=== PATIENT | female | born 1970 | race Caucasian/White ===

== ENCOUNTER 2020-05-04 16:15 | Emergency (ER) | payer OTHER ==
[~2020-05-04] VITALS: Ht 162.6 cm; Wt 78.5 kg
[2020-05-04 16:22] VITALS: Ht 162.6 cm; Wt 78.5 kg
[2020-05-04 17:06] LABS: ALBUMIN 3.4 g/dL (3.4-5.0); BILIRUBIN TOTAL 0.5 mg/dL (0.20-1.00); CALCIUM 9.1 mg/dL (8.5-10.1); CARBON DIOXIDE 16.6 mmol/L (21-32); CREATININE SERUM 3.3 mg/dL (0.6-1.0); POTASSIUM SERUM 4.4 mmol/L (3.5-5.1); TOTAL PROTEIN, SERUM 7.1 g/dL (6.4-8.2)
[2020-05-04 17:09] LABS: BASOPHIL % 0.5 % (0-2); PLATELET COUNT 246 x10^3mcL (130-400); RED CELL DISTRIBUTION WIDTH 13.1 % (11.5-14.5)
[2020-05-04 19:13] VITALS: BP 105/70
== END 2020-05-04 19:13 | disposition home or self-care (01) ==
LOC: ED 16:15
PROVIDERS: Student in an Organized Health Care Education/Training Program
DX: E16.2 Hypoglycemia, unspecified (principal); I10 Essential (primary) hypertension; J45.909 Unspecified asthma, uncomplicated; E87.1 Hypo-osmolality and hyponatremia; R53.81 Other malaise
CPT/HCPCS: 82962; Q0092